=== PATIENT | female | born 1945 | race Caucasian/White ===

== ENCOUNTER → 2017-01-12 14:35 | Outpatient (CLI) | payer MEDICARE, OTHER ==
[2016-03-08 14:06] VITALS: BMI 30.4
[~2017-01-12 14:35] MED LIST: ACETAMINOPHEN500 M1 PO; AMBIEN10 MG PO; ASPIRIN 81 MG E81 MG PO; BENICAR40 MG PO; BREO ELLIPTA 21 EACH; BYSTOLIC10 MG PO; CALCIUM 600+D T1 TA1 PO; CELEBREX200 MG PO; CHLOR-TRIMETON4 MG PO; CRESTOR20 MG PO; CYMBALTA60 MG PO; DIOVAN160 MG PO; FISH OIL 1,0001 CA1 PO; FLUTICASONE PRO16 GM NASAL; INCRUSE INH; LASIX20 MG PO; LYRICA75 MG PO; NICODERM C1 PATCH .1 TRANSDERM; NORVASC10 MG PO; PLAVIX75 MG PO; PROAIR HFA8.5 GM INH; PROTONIX40 MG PO; PROZAC40 MG PO; ROBAXIN500 MG PO; SINGULAIR10 MG PO; SPIRIVA18 MCG INH; SYMBICORT 16010.2 GM INH; TOPROL XL25 MG PO; ULTRAM50 MG PO; VITAMIN C1000 MG PO; XOPENEX 0.0.63 MG/3 UPD
== END | disposition home or self-care (01) ==
LOC: D.CT 14:35
DX: R19.7 Diarrhea, unspecified (principal)

== ENCOUNTER → 2017-02-10 14:02 | Outpatient (CLI) | payer MEDICARE, OTHER ==
[2016-03-08 14:06] VITALS: BMI 30.4
== END | disposition home or self-care (01) ==
LOC: D.LABREF 14:02
DX: R31.9 Hematuria, unspecified (principal)

== ENCOUNTER → 2017-08-04 08:26 | Outpatient (CLI) | payer MEDICARE, OTHER ==
[2016-03-08 14:06] VITALS: BMI 30.4
== END | disposition home or self-care (01) ==
LOC: D.CT 08:26
DX: I73.9 Peripheral vascular disease, unspecified (principal); M79.605 Pain in left leg; M79.604 Pain in right leg

== ENCOUNTER → 2017-12-15 15:17 | Outpatient (CLI) | payer MEDICARE, OTHER ==
[2016-03-08 14:06] VITALS: BMI 30.4
== END | disposition home or self-care (01) ==
LOC: D.CT 15:17
DX: R91.1 Solitary pulmonary nodule (principal)

== ENCOUNTER → 2018-09-21 10:28 | Outpatient (CLI) | payer MEDICARE, OTHER ==
[2016-03-08 14:06] VITALS: BMI 30.4
== END | disposition home or self-care (01) ==
LOC: D.CT 09-20 08:00
PROVIDERS: ATTEND Internal Medicine Cardiovascular Disease
DX: I71.4 Abdominal aortic aneurysm, without rupture (principal); I25.10 Atherosclerotic heart disease of native coronary artery without angina pectoris

== ENCOUNTER → 2019-07-20 16:11 | Outpatient (CLI) | payer MEDICARE, OTHER ==
[2016-03-08 14:06] VITALS: BMI 30.4
== END | disposition home or self-care (01) ==
LOC: D.CT 16:11
PROVIDERS: ATTEND Family Medicine
DX: I73.9 Peripheral vascular disease, unspecified (principal)